=== PATIENT | female | born 1980 | race Caucasian/White ===

== ENCOUNTER 2017-02-08 02:13 | Emergency (ER) | payer SELFPAY ==
[~2017-02-08] VITALS: Ht 172.7 cm; Wt 69.3 kg
[~2017-02-08 02:13] MED LIST: NO HOME MEDS; VICODIN 5-3001 EACH PO; ZOFRAN4 MG PO
[2017-02-08] MEDS ORDERED: CLINDAMYCIN HC300 MG PO (03:43)
[2017-02-08] MEDS ORDERED: NORCO 5/3251 TABLET PO (03:43)
[2017-02-08 03:54] VITALS: BP 102/56
== END 2017-02-08 03:55 | disposition home or self-care (01) ==
LOC: EME 02:13
DX: I88.8 Other nonspecific lymphadenitis (principal); R51 Headache; M54.2 Cervicalgia; Z88.0 Allergy status to penicillin; Z98.84 Bariatric surgery status; Z90.49 Acquired absence of other specified parts of digestive tract; Z86.711 Personal history of pulmonary embolism
CPT/HCPCS: 99281; 99283

== ENCOUNTER 2017-02-13 03:05 | Emergency (ER) | payer OTHER ==
[~2017-02-13] VITALS: Ht 172.7 cm; Wt 69.0 kg
[~2017-02-13 03:05] MED LIST changes: +CLINDAMYCIN HC300 MG PO; +NORCO 5/3251 TABLET PO
[2017-02-13] MEDS ORDERED: PROTONIX20 MG PO (03:51)
[2017-02-13 05:14] LABS: HEMATOCRIT 26.6 % (36.0-46.0); MCH 19.1 PG (29.0-34.0); MCHC 29.3 G/DL (30.0-36.0); MEAN PLAT.VOLUME 10.4 uM^3 (9.5-12.4); PLATELET COUNT 462 K/uL (156-360); RBC DIS.WIDTH-CV 20.5 % (11.8-14.6); RBC DIS.WIDTH-SD 46.1 % (39-53); RED BLOOD COUNT 4.09 M/uL (3.80-5.20)
[2017-02-13 05:17] LABS: CHLORIDE 107 mEq/L (99-109); POTASSIUM 3.9 mEq/L (3.7-5.4); SODIUM 139 mEq/L (136-147)
[2017-02-13 05:18] LABS: GLUCOSE 79 mg/dL (70-99)
[2017-02-13 05:20] LABS: ANION GAP 6 MEQ/L (2-14)
[2017-02-13 05:22] LABS: GFR ESTIMATE (CALCULATED) > 59 mL/min/
[2017-02-13 05:23] LABS: UREA NITROGEN (BUN) 16 mg/dL (9-23)
[2017-02-13 05:25] VITALS: BP 118/70
[2017-02-13] MEDS ORDERED: BACTRIM,SEPT1 TABLET PO (06:17)
[2017-02-13] MEDS ORDERED: LIDOCAINE-HC 3-11 GM PR (06:57)
[2017-02-13] MEDS ORDERED: NORCO 5/3251 TABLET PO (06:57)
[2017-02-13 07:38] LABS: INTERNAL CONTROL VALID? YES; MONOSPOT (MONONUCLEOSIS SEROL) NEGATIVE
[2017-02-15 12:03] LABS: ANTI-EPSTEIN-BARR NUCLEAR AG EQUIVOCAL; ANTI-EPSTEIN-BARR VCA IGG POSITIVE; ANTI-EPSTEIN-BARR VCA IGM NEGATIVE
== END 2017-02-13 07:02 | disposition home or self-care (01) ==
LOC: EME 03:05
PROVIDERS: Emergency Medicine
DX: R59.0 Localized enlarged lymph nodes (principal); D64.9 Anemia, unspecified; Z98.84 Bariatric surgery status; Z86.711 Personal history of pulmonary embolism; F17.200 Nicotine dependence, unspecified, uncomplicated
CPT/HCPCS: 70450; 70491; 80048; 83605; 85027; 86308; 86664; 86665; 99281; 99284; J2270; J7030